=== PATIENT | male | born 1995 ===

== ENCOUNTER 2018-06-20 22:53 | Inpatient (IN) ==
[2018-06-20] MEDS ORDERED: Diphtheria/Tetanus/Pertussis Vaccine Inj 0.5 ML Syringe IM ONE (23:00)
[2018-06-20] MEDS ORDERED: ceFAZolin 2 GM Premix Inj 2 GM/50 ML PIGGYBACK IV.SIG ONE (23:00)
[2018-06-20 23:11] LABS: Baso # (Auto) 0.1 th/mm3 (0.0-0.2); Baso % (Auto) 0.5 % (0.0-2.0); Eos # (Auto) 0.4 th/mm3 (0.0-0.4); Eos % (Auto) 2.4 % (0.0-4.0); Hematocrit 40.3 % (39.0-51.0); Lymph # (Auto) 2.9 th/mm3 (1.0-4.8); Lymph % (Auto) 19.4 % (9.0-44.0); Mean Corpuscular HGB Conc 34.7 % (32.0-36.0); Mean Corpuscular Hemoglobin 30.6 pg (27.0-34.0); Mean Corpuscular Volume 88.4 fL (80.0-100.0); Mean Platelet Volume 9.4 fL (7.0-11.0); Mono # (Auto) 0.9 th/mm3 (0.0-0.9); Mono % (Auto) 5.9 % (0.0-8.0); Neut # (Auto) 10.6 th/mm3 (1.8-7.7); Neut % (Auto) 71.8 % (16.0-70.0); Platelet Count 202 th/mm3 (150-450); Red Blood Count 4.56 mil/mm3 (4.50-5.90); Red Cell Distribution Width 14.1 % (11.6-17.2); White Blood Count 14.7 th/mm3 (4.0-11.0)
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
[2018-06-20] MEDS ORDERED: Lidocaine PF 1% Inj 5 ML Syringe OTHER ONE (23:49)
[2018-06-20] MEDS ORDERED: Normosol-R pH 7.4 Inj 2,000 ML IV.CONT ONE (23:49)
[2018-06-20] MEDS ORDERED: Glycopyrrolate Inj 1 MG/5 ML Syringe IV.PUSH ONE (23:49)
[2018-06-20] MEDS ORDERED: Phenylephrine/NS 1000 MCG/10ML Syringe IV.PUSH ONE (23:49)
[2018-06-20] MEDS ORDERED: Succinylcholine Inj 100 MG/5 ML Syringe IV.PUSH ONE (23:49)
[2018-06-20] MEDS ORDERED: Neostigmine Inj 5 MG/5 ML Syringe IV.PUSH ONE (23:49)
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
[2018-06-21] MEDS ORDERED: Sugammadex Inj 200 MG/2 ML Vial IV.PUSH ONE (02:09)
[2018-06-21] MEDS ORDERED: fentaNYL Citrate Inj 100 MCG/2 ML Ampul ONE ×2 (02:23→10:10)
[2018-06-21] MEDS ORDERED: *morphine SULFATE 4 MG/ML PERIprocedure ONLY ONE (03:00)
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
[2018-06-21] MEDS ORDERED: Chlorhexidine Gluconate 2% 1 Pack (2 Cloths) TOPICAL SCH (04:00)
[2018-06-21] MEDS ORDERED: Chlorhexidine Gluconate 2% 1 Pack (2 Cloths) TOPICAL PRN (04:00)
[2018-06-21] MEDS ORDERED: ceFAZolin 2 GM Premix Inj 2 GM/50 ML PIGGYBACK IV.SIG SCH (05:00)
[2018-06-21] MEDS: HYDROmorphone PF Inj 2 MG/ML Vial IV.PUSH PRN ×5 (05:13→23:13)
[2018-06-21 06:30] LABS: Activated Partial Thrombo Time 25.9 sec (23.4-31.7); INR 1.2 Ratio; Prothrombin Time 12.3 sec (9.8-11.6)
[2018-06-21 06:56] LABS: Albumin 3.3 g/dL (3.4-5.0); Anion Gap 6 meq/L (5-15); Aspartate Aminotransferase 103 U/L (15-37); Blood Urea Nitrogen 10 mg/dL (7-18); Calcium 7.6 mg/dL (8.5-10.1); Chloride 109 meq/L (98-107); Glomerular Filtration Rate 53 mL/min (>89); Glucose,Random 139 mg/dL (74-106); Potassium 4.3 meq/L (3.5-5.1); Sodium 142 meq/L (136-145)
[2018-06-21 06:57] LABS: Alanine Aminotransferase 106 U/L (12-78)
[2018-06-21] MEDS ORDERED: Bupivacaine/Epinephrine PF Inj 0.5% 30 ML Vial ONE (06:58)
[2018-06-21 06:59] LABS: Alkaline Phosphatase 51 U/L (45-117); Total Protein 5.7 g/dL (6.4-8.2)
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
[2018-06-21] MEDS ORDERED: ceFAZolin 1 GM Premix Inj 1 GM/50 ML FROZ.PIGGY IV.SIG ONE (07:28)
[2018-06-21] MEDS ORDERED: Tobramycin Sulfate 1,200 MG Vial (for ortho/sterile core) OTHER ONE (07:48)
[2018-06-21] MEDS: Pantoprazole Inj 40 MG Vial IV.PUSH SCH (08:05)
[2018-06-21] MEDS ORDERED: Post-op Orders (for Pharmacy) OTHER STA (08:43)
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
[2018-06-21] MEDS ORDERED: *Meperidine Inj 25 MG/ML Vial PERIprocedural Use ONLY ONE (09:48)
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
[2018-06-21] MEDS ORDERED: Morphine Inj 4 MG/ML Vial ONE (10:11)
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
[2018-06-21] MEDS: ceFAZolin Inj 2,000 MG in Sodium Chlor 0.9% Inj 80 ML IV.SIG SCH ×2 (15:54→23:07)
[2018-06-21] MEDS: Gentamicin/NS 80 mg Premix 100 ML IV.SIG SCH (16:30)
[2018-06-21] MEDS: Enoxaparin Inj 40 MG/0.4 ML Syringe SQ SCH (19:55)
[2018-06-22] MEDS: Gentamicin/NS 80 mg Premix 100 ML IV.SIG SCH ×3 (00:49→17:12)
[2018-06-22] MEDS: HYDROmorphone PF Inj 2 MG/ML Vial IV.PUSH PRN ×6 (02:18→20:38)
[2018-06-22] MEDS: Pantoprazole Inj 40 MG Vial IV.PUSH SCH (05:33)
[2018-06-22 05:46] LABS: Baso % (Auto) 0.1 % (0.0-2.0); Eos % (Auto) 0.2 % (0.0-4.0); Hematocrit 32.8 % (39.0-51.0); Hemoglobin 11.8 gm/dL (13.0-17.0); Lymph # (Auto) 1.1 th/mm3 (1.0-4.8); Lymph % (Auto) 11.5 % (9.0-44.0); Mean Corpuscular HGB Conc 35.9 % (32.0-36.0); Mean Corpuscular Hemoglobin 31.6 pg (27.0-34.0); Mean Corpuscular Volume 87.9 fL (80.0-100.0); Mean Platelet Volume 9.1 fL (7.0-11.0); Mono # (Auto) 0.9 th/mm3 (0.0-0.9); Mono % (Auto) 9.7 % (0.0-8.0); Neut # (Auto) 7.4 th/mm3 (1.8-7.7); Neut % (Auto) 78.5 % (16.0-70.0); Platelet Count 175 th/mm3 (150-450); Red Blood Count 3.73 mil/mm3 (4.50-5.90); Red Cell Distribution Width 13.8 % (11.6-17.2); White Blood Count 9.4 th/mm3 (4.0-11.0)
[2018-06-22 06:11] LABS: Alanine Aminotransferase 90 U/L (12-78); Albumin 2.9 g/dL (3.4-5.0); Anion Gap 5 meq/L (5-15); Aspartate Aminotransferase 93 U/L (15-37); Blood Urea Nitrogen 8 mg/dL (7-18); Calcium 7.9 mg/dL (8.5-10.1); Carbon Dioxide 32.6 meq/L (21.0-32.0); Chloride 103 meq/L (98-107); Glomerular Filtration Rate Greater Than 89 mL/min (>89); Glucose,Random 99 mg/dL (74-106); Lipase 69 U/L (73-393); Potassium 3.9 meq/L (3.5-5.1); Sodium 141 meq/L (136-145)
[2018-06-22 06:13] LABS: Alkaline Phosphatase 48 U/L (45-117); Total Protein 5.7 g/dL (6.4-8.2)
[2018-06-22] MEDS: ceFAZolin Inj 2,000 MG in Sodium Chlor 0.9% Inj 80 ML IV.SIG SCH ×3 (06:49→22:04)
--- NOTE | 2018-06-22 08:18 | P.PNOP ---
Subjective Interval history: Patient states his pain is well controlled in his left upper extremity. All questions were answered Physical Exam Vital signs: Vital Signs 06/21/18 09:38 06/21/18 09:45 06/21/18 10:00 Temperature 98.1 F Pulse Rate 88 96 H 92 H Respiratory Rate 16 16 16 Blood Pressure 156/91 H 130/79 142/86 H Pulse Oximetry 100 98 98 06/21/18 10:15 06/21/18 10:30 06/21/18 11:00 Temperature Pulse Rate 92 H 92 H 88 Respiratory Rate 16 16 Blood Pressure 138/87 136/86 Pulse Oximetry 97 97 06/21/18 12:00 06/21/18 16:00 06/21/18 16:10 Temperature 98.5 F 97.5 F L Pulse Rate 96 H 88 Respiratory Rate 14 16 16 Blood Pressure 143/89 H 130/76 Pulse Oximetry 96 94 L 06/21/18 20:00 06/22/18 00:00 06/22/18 04:00 Temperature 98.5 F 98.2 F 98.4 F Pulse Rate 75 81 74 Respiratory Rate 18 17 18 Blood Pressure 141/80 H 133/73 136/80 Pulse Oximetry 97 95 95 Intake & Output 06/21/18 06/22/18 06/22/18 18:59 06:59 18:59 Intake Total 2850 / 2850 1300 / 1300 Output Total 300 / 300 2440 / 2440 Balance 2550 / 2550 -1140 / -1140 Weight 77.8 kg 79 kg Intake: IV 1350 / 1350 1200 / 1200 LR 1000 mL Inj 1,000 ML @ 100 1000 / 1000 1000 / 1000 mls/hr IV.CONT .Q10H [facility] Rx#: [id number] Ofirmev Inj 1,000 mg In 100 ml 100 / 100 @ 400 mls/hr IV.SIG Q6H [facility] Rx# :[id number] Gentamicin/NS 80 mg Premix 100 100 / 100 100 / 100 ML @ 200 mls/hr IV.SIG Q8H [facility] Rx#:[id number] Ancef 1 GM Premix Inj 1 gm In 50 / 50 50 ml @ 0 mls/hr IV.SIG .STK- [facility] Rx#:[id number] Ancef Inj 2,000 MG In NS Inj 80 100 / 100 100 / 100 ML @ 200 mls/hr IV.SIG Q8H [facility] Rx#:[id number] Oral 100 / 100 Anesthesia Amount 1500 / 1500 Output: Urine 1650 / 1650 Estimated Blood Loss 50 / 50 Urine Amount (Catheter) 250 / 250 Indwelling Urethral Catheter 250 / 250 Gastric Drainage 700 / 700 Left Nare Nasogastric Tube 700 / 700 Wound Drainage 90 / 90 Right DIAZ Drain 90 / 90 Other: Date of Last Bowel Movement 06/20/18 06/20/18 Weight On Admission 77.8 kg Narrative: LUE: Splint dry and intact, was removed for examination, distal digits have very mild swelling, freely able to move distal digits, neuro exam intact, NGT in place - Urinary Catheter Management Indwelling Urethral Catheter Cath placed during this visit: yes Reason for continuing: Hourly intake/output Insertion date: 06/20/18 Results - Labs CBC & Chem 7: 06/22/18 05:25 06/22/18 05:25 Laboratory Results - last 24 hr 06/22/18 06/22/18 05:25 05:25 WBC 9.4 RBC 3.73 L Hgb 11.8 L D Hct 32.8 L MCV 87.9 MCH 31.6 MCHC 35.9 RDW 13.8 Plt Count 175 MPV 9.1 Neut % (Auto) 78.5 H Lymph % (Auto) 11.5 [place] % (Auto) 9.7 H Eos % (Auto) 0.2 Baso % (Auto) 0.1 Neut # (Auto) 7.4 Lymph # (Auto) 1.1 [place] # (Auto) 0.9 Eos # (Auto) 0.0 Baso # (Auto) 0.0 WBC Differential . Differential Comment Auto diff final Sodium 141 Potassium 3.9 Chloride 103 Carbon Dioxide 32.6 H Anion Gap 5 BUN 8 Creatinine 0.98 Estimated GFR Greater than 89 Random Glucose 99 Calcium 7.9 L Total Bilirubin 1.6 H AST 93 H ALT 90 H Alkaline Phosphatase 48 Total Protein 5.7 L Albumin 2.9 L Lipase 69 L - Imaging Impressions Wrist X-Ray 06/21/18 00:00 CONCLUSION: Excellent alignment of the patient's severely comminuted fracture post plating. Wrist X-Ray 06/21/18 00:00 CONCLUSION: Images document antibiotic beads placed in the distal left forearm. - Procedures Left Open distal Radius Fx s/p ORIF 06/21/18 Assessment and Plan - Assessment and Plan 1) Left Open distal Radius Fx s/p ORIF - POD 1 -NWB -maintain splint at all times -neuro checks -scripts on chart -ortho surgeries complete and clear for DC once ok with Trauma -f/u with Alberto or TOMASZ in 2 weeks [facility] Prescription Drug Monitoring Database has been queried and verified prior to prescribing the controlled substance. Acute pain exception. This patient has normal, predicted, physiological, and time limited response to an adverse mechanical stimulus associated with surgery, trauma, or acute illness as described in my notes. There is a lack of alternative treatment options other than to include the prescribed narcotic treatment for this condition.
[2018-06-22] MEDS ORDERED: Phenol 1.4% 180 ML Spray Bottle OROPHARYNG PRN (14:00)
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
[2018-06-22] MEDS: Enoxaparin Inj 40 MG/0.4 ML Syringe SQ SCH (20:39)
[2018-06-23] MEDS: Gentamicin/NS 80 mg Premix 100 ML IV.SIG SCH ×2 (00:29→07:46)
[2018-06-23] MEDS: HYDROmorphone PF Inj 2 MG/ML Vial IV.PUSH PRN ×3 (00:35→09:02)
[2018-06-23] MEDS: ceFAZolin Inj 2,000 MG in Sodium Chlor 0.9% Inj 80 ML IV.SIG SCH (06:23)
[2018-06-23] MEDS: Pantoprazole Inj 40 MG Vial IV.PUSH SCH (06:23)
--- NOTE | 2018-06-23 08:11 | P.PNOP ---
Subjective Interval history: Pt admits pain better controlled. No complaints. Physical Exam Vital signs: Vital Signs 06/22/18 11:27 06/22/18 16:00 06/22/18 20:00 Temperature 97.7 F 98.0 F Pulse Rate 84 87 Respiratory Rate 17 17 Blood Pressure 151/82 H 147/93 H Pulse Oximetry 100 97 98 06/23/18 00:00 06/23/18 04:00 06/23/18 07:53 Temperature 98.6 F 98.3 F 98.6 F Pulse Rate 86 79 84 Respiratory Rate 16 16 17 Blood Pressure 146/79 H 155/91 H 147/84 H Pulse Oximetry 98 97 95 06/23/18 08:06 Temperature Pulse Rate Respiratory Rate Blood Pressure Pulse Oximetry 95 Intake & Output 06/22/18 06/23/18 06/23/18 19:59 06:59 18:59 Intake Total 100 / 100 Output Total Balance 100 / 100 Weight Intake: IV 100 / 100 LR 1000 mL Inj 1,000 ML @ 60 mls/hr IV.CONT .[id number] [facility] Rx# :[id number] Gentamicin/NS 80 mg Premix 100 ML @ 200 mls/hr IV.SIG Q8H [facility] Rx#:[id number] Ancef Inj 2,000 MG In NS Inj 80 100 / 100 ML @ 200 mls/hr IV.SIG Q8H [facility] Rx#:[id number] Output: Urine Gastric Drainage Left Nare Nasogastric Tube Wound Drainage Right DIAZ Drain Other: # Voids Date of Last Bowel Movement 06/20/18 Narrative: LUE: Splint dry and intact, was removed for examination, distal digits have very mild swelling, freely able to move distal digits, neuro exam intact, NGT in place - Urinary Catheter Management Indwelling Urethral Catheter Cath placed during this visit: yes, but has since been removed by the nurse Reason for continuing: Hourly intake/output Insertion date: 06/20/18 Removal date: 06/21/18 Removal time: 16:00 Results - Labs CBC & Chem 7: 06/22/18 05:25 06/22/18 05:25 - Procedures Left Open distal Radius Fx s/p ORIF 06/21/18 Assessment and Plan - Assessment and Plan 1) Left Open distal Radius Fx s/p ORIF - POD 1 -NWB -maintain splint at all times -neuro checks -scripts on chart -ortho surgeries complete and clear for DC once ok with Trauma -f/u with Alberto or TOMASZ in 2 weeks [employer] Prescription Drug Monitoring Database has been queried and verified prior to prescribing the controlled substance. Acute pain exception. This patient has normal, predicted, physiological, and time limited response to an adverse mechanical stimulus associated with surgery, trauma, or acute illness as described in my notes. There is a lack of alternative treatment options other than to include the prescribed narcotic treatment for this condition.
[2018-06-23 11:18] LABS: Baso % (Auto) 0.2 % (0.0-2.0); Eos # (Auto) 0.2 th/mm3 (0.0-0.4); Eos % (Auto) 2.3 % (0.0-4.0); Hematocrit 32.5 % (39.0-51.0); Hemoglobin 11.5 gm/dL (13.0-17.0); Lymph # (Auto) 0.9 th/mm3 (1.0-4.8); Lymph % (Auto) 12.6 % (9.0-44.0); Mean Corpuscular HGB Conc 35.4 % (32.0-36.0); Mean Corpuscular Hemoglobin 31.6 pg (27.0-34.0); Mean Corpuscular Volume 89.4 fL (80.0-100.0); Mean Platelet Volume 9.1 fL (7.0-11.0); Mono # (Auto) 0.6 th/mm3 (0.0-0.9); Mono % (Auto) 8.5 % (0.0-8.0); Neut # (Auto) 5.7 th/mm3 (1.8-7.7); Neut % (Auto) 76.4 % (16.0-70.0); Platelet Count 176 th/mm3 (150-450); Red Blood Count 3.64 mil/mm3 (4.50-5.90); Red Cell Distribution Width 14.3 % (11.6-17.2); White Blood Count 7.5 th/mm3 (4.0-11.0)
[2018-06-23 11:40] LABS: Anion Gap 5 meq/L (5-15); Aspartate Aminotransferase 62 U/L (15-37); Blood Urea Nitrogen 8 mg/dL (7-18); Calcium 8.5 mg/dL (8.5-10.1); Carbon Dioxide 33.2 meq/L (21.0-32.0); Chloride 100 meq/L (98-107); Glomerular Filtration Rate Greater Than 89 mL/min (>89); Glucose,Random 89 mg/dL (74-106); Potassium 3.7 meq/L (3.5-5.1); Sodium 138 meq/L (136-145)
[2018-06-23 11:41] LABS: Alanine Aminotransferase 61 U/L (12-78)
[2018-06-23 11:43] LABS: Alkaline Phosphatase 56 U/L (45-117); Total Protein 6.5 g/dL (6.4-8.2)
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
[2018-06-23] MEDS: Enoxaparin Inj 40 MG/0.4 ML Syringe SQ SCH (19:23)
--- NOTE | 2018-06-24 06:47 | P.PNOP ---
Subjective Interval history: Resting comfortably. States that the wrist is doing well and has full motion Physical Exam Vital signs: Vital Signs 06/23/18 07:53 06/23/18 08:06 06/23/18 12:42 Temperature 98.6 F 98.5 F Pulse Rate 84 75 Respiratory Rate 17 17 Blood Pressure 147/84 H 139/83 Pulse Oximetry 95 95 96 06/23/18 16:19 06/23/18 20:00 06/23/18 20:19 Temperature 98.1 F 98.7 F Pulse Rate 86 81 88 Respiratory Rate 17 17 Blood Pressure 144/81 H 141/82 H Pulse Oximetry 95 96 06/23/18 23:46 06/24/18 00:00 06/24/18 03:31 Temperature 98.5 F Pulse Rate 70 69 82 Respiratory Rate 16 Blood Pressure 156/91 H Pulse Oximetry 95 06/24/18 04:00 Temperature 98.6 F Pulse Rate 82 Respiratory Rate 16 Blood Pressure 154/84 H Pulse Oximetry 94 L Intake & Output 06/23/18 06/23/18 06/24/18 06:59 18:59 06:59 Intake Total 100 / 100 Output Total 40 / 40 Balance 60 / 60 Weight 77.1 kg Intake: IV 100 / 100 LR 1000 mL Inj 1,000 ML @ 60 mls/hr IV.CONT .[id number] [facility] Rx# :[id number] Gentamicin/NS 80 mg Premix 100 ML @ 200 mls/hr IV.SIG Q8H [facility] Rx#:[id number] Ancef Inj 2,000 MG In NS Inj 80 100 / 100 ML @ 200 mls/hr IV.SIG Q8H [facility] Rx#:[id number] Output: Urine Gastric Drainage 25 / 25 Left Nare Nasogastric Tube 25 / 25 Wound Drainage 15 / 15 Right DIAZ Drain 15 / 15 Other: Date of Last Bowel Movement 06/20/18 06/20/18 Narrative: Left upper extremity: Splint clean dry and intact. Intact sensation over the radial ulnar and good capillary refills. He is able to fully extend his fingers and make a fist - Urinary Catheter Management Indwelling Urethral Catheter Cath placed during this visit: yes, but has since been removed by the nurse Reason for continuing: Hourly intake/output Insertion date: 06/20/18 Removal date: 06/21/18 Removal time: 16:00 Results - Labs CBC & Chem 7: 06/23/18 10:52 06/23/18 10:52 Laboratory Results - last 24 hr 06/23/18 06/23/18 10:52 10:52 WBC 7.5 RBC 3.64 L Hgb 11.5 L Hct 32.5 L MCV 89.4 MCH 31.6 MCHC 35.4 RDW 14.3 Plt Count 176 MPV 9.1 Neut % (Auto) 76.4 H Lymph % (Auto) 12.6 Kendall % (Auto) 8.5 H Eos % (Auto) 2.3 Baso % (Auto) 0.2 Neut # (Auto) 5.7 Lymph # (Auto) 0.9 L Kendall # (Auto) 0.6 Eos # (Auto) 0.2 Baso # (Auto) 0.0 WBC Differential . Differential Comment Auto diff final Sodium 138 Potassium 3.7 Chloride 100 Carbon Dioxide 33.2 H Anion Gap 5 BUN 8 Creatinine 0.85 Estimated GFR Greater than 89 Random Glucose 89 Calcium 8.5 Total Bilirubin 1.4 H AST 62 H ALT 61 Alkaline Phosphatase 56 Total Protein 6.5 D Albumin 3.0 L - Procedures Left Open distal Radius Fx s/p ORIF 06/21/18 Assessment and Plan - Assessment and Plan 1) Left Open distal Radius Fx s/p ORIF - POD 3 -NWB -maintain splint at all times -neuro checks -scripts on chart -ortho surgeries complete and clear for DC from orthopedic standpoint -f/u with Alberto or [facility] in 2 weeks E-[facility] Prescription Drug Monitoring Database has been queried and verified prior to prescribing the controlled substance. Acute pain exception. This patient has normal, predicted, physiological, and time limited response to an adverse mechanical stimulus associated with surgery, trauma, or acute illness as described in my notes. There is a lack of alternative treatment options other than to include the prescribed narcotic treatment for this condition.
[2018-06-24] MEDS: Famotidine 20 MG Tablet PO SCH ×2 (08:52→21:36)
[2018-06-24] MEDS: Senna/Docusate Sodium 8.6/50 MG Tablet PO SCH ×2 (08:52→21:36)
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
[2018-06-24] MEDS: Enoxaparin Inj 40 MG/0.4 ML Syringe SQ SCH (21:36)
--- NOTE | 2018-06-25 07:04 | P.PNOP ---
Subjective Interval history: POD 4 s/p I&D with ORIF left distal radius doing well. no changes. no new complaints. Physical Exam Vital signs: Vital Signs 06/24/18 08:00 06/24/18 12:00 06/24/18 16:00 Temperature 97.5 F L 98.5 F 98.6 F Pulse Rate 74 89 84 Respiratory Rate 15 16 16 Blood Pressure 165/95 H 139/79 141/75 H Pulse Oximetry 96 97 97 06/24/18 17:02 06/24/18 20:00 06/25/18 00:00 Temperature 98.7 F 98.7 F Pulse Rate 80 84 Respiratory Rate 16 17 18 Blood Pressure 147/83 H 157/96 H Pulse Oximetry 98 98 06/25/18 01:00 Temperature Pulse Rate Respiratory Rate 17 Blood Pressure Pulse Oximetry Intake & Output 06/24/18 06/25/18 06/25/18 18:59 06:59 18:59 Intake Total 240 / 240 Balance 240 / 240 Weight 77.3 kg Intake: Oral 240 / 240 Other: # Voids 6 Date of Last Bowel Movement 06/20/18 06/24/18 # Bowel Movements 3 Narrative: LUE: +short arm splint. intact. NVI - Urinary Catheter Management Indwelling Urethral Catheter Cath placed during this visit: yes, but has since been removed by the nurse Reason for continuing: Hourly intake/output Insertion date: 06/20/18 Removal date: 06/21/18 Removal time: 16:00 Results - Labs CBC & Chem 7: 06/23/18 10:52 06/23/18 10:52 - Procedures Left Open distal Radius Fx s/p ORIF 06/21/18 Assessment and Plan - Assessment and Plan 1) Left Open distal Radius Fx s/p ORIF - POD 4 -NWB -maintain splint at all times -neuro checks -scripts on chart -ortho surgeries complete and clear for DC from orthopedic standpoint -f/u with Alberto or [facility]OMAS[facility] in 2 weeks E-[facility] Prescription Drug Monitoring Database has been queried and verified prior to prescribing the controlled substance. Acute pain exception. This patient has normal, predicted, physiological, and time limited response to an adverse mechanical stimulus associated with surgery, trauma, or acute illness as described in my notes. There is a lack of alternative treatment options other than to include the prescribed narcotic treatment for this condition.
[2018-06-25] MEDS: Senna/Docusate Sodium 8.6/50 MG Tablet PO SCH (08:07)
[2018-06-25] MEDS: Famotidine 20 MG Tablet PO SCH (08:07)
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
== END 2018-06-25 12:36 | disposition home or self-care (01) ==
LOC: NEPI 22:53 → EDBD 23:48 → NEDA 23:48 → HPAC 06-21 → N06 06-21 03:52
PROVIDERS: ADMIT Surgery Trauma Surgery; ATTEND Surgery Trauma Surgery